=== PATIENT | female | born 1960 | race Caucasian/White ===

== ENCOUNTER → 2017-02-10 | Outpatient (CLI) | payer BC ==
--- NOTE | 2017-02-10 11:39 | MM ---
Reason for exam: additional evaluation requested from prior study. Last mammogram was performed 1 year ago. History: Patient is postmenopausal, has history of breast cancer at age 46, and previous chest radiation therapy. Family history of breast cancer in 2 maternal cousins at age 50. Lumpectomy of the left breast, February 03, 2007. Malignant excisional biopsy of the left breast, January 20, 2007. Benign excisional biopsy of the left breast, 1989. Radiation therapy. Took hormonal contraceptives for 12 years beginning at age 24. Took estrogen for 3 months beginning at age 30. Took progesterone for 2 months. Took antineoplastic for 5 years beginning at age 46. Physical Findings: Nurse did not find any significant physical abnormalities on exam. MG Diagnostic Mammo w CAD [facility] Bilateral CC and MLO view(s) were taken. Prior study comparison: February 25, 2016, bilateral MG 3d diag mammo w/cad [facility]. February 13, 2015, bilateral MG 3d diag mammo w/cad [facility]. There are scattered fibroglandular densities. Finding #1: Architectural distortion in the left breast consistent with lumpectomy changes central aspect. Finding #2: There are typically benign round, linear calcifications in both breasts. There is no discrete abnormality. These results were verbally communicated with the patient and result sheet given to the patient on 02/10/17. ASSESSMENT: Benign, BI-RAD 2 RECOMMENDATION: Follow-up diagnostic mammogram of both breasts in 1 year.
== END | disposition home or self-care (01) ==
LOC: RADMAMWWP 10:18
PROVIDERS: ATTEND Internal Medicine Hematology & Oncology
DX: Z08 Encounter for follow-up examination after completed treatment for malignant neoplasm (principal); Z85.3 Personal history of malignant neoplasm of breast

== ENCOUNTER → 2018-02-02 | Outpatient (CLI) | payer BC ==
--- NOTE | 2018-02-02 11:56 | MM ---
Reason for exam: additional evaluation requested from abnormal screening. Last mammogram was performed 1 year ago. History: Patient is postmenopausal, has history of breast cancer at age 46, and previous chest radiation therapy. Family history of breast cancer in 2 maternal cousins at age 50. Lumpectomy of the left breast, February 03, 2007. Malignant excisional biopsy of the left breast, January 20, 2007. Benign excisional biopsy of the left breast, 1989. Radiation therapy. Took hormonal contraceptives for 12 years beginning at age 24. Took estrogen for 3 months beginning at age 30. Took progesterone for 2 months. Took antineoplastic for 5 years beginning at age 46. Physical Findings: Nurse did not find any significant physical abnormalities on exam. MG 3D Diag Mammo W/Cad [facility] Bilateral CC and MLO view(s) were taken. Prior study comparison: February 10, 2017, bilateral MG diagnostic mammo w CAD [facility]. February 25, 2016, bilateral MG 3d diag mammo w/cad [facility]. There are scattered fibroglandular densities. No significant new findings when compared with previous films. These results were verbally communicated with the patient and result sheet given to the patient on 02/02/18. ASSESSMENT: Benign, BI-RAD 2 RECOMMENDATION: Routine screening mammogram of both breasts in 1 year.
== END | disposition home or self-care (01) ==
LOC: RADMAMWWP 10:57
PROVIDERS: ATTEND Internal Medicine Hematology & Oncology
DX: Z08 Encounter for follow-up examination after completed treatment for malignant neoplasm (principal); Z85.3 Personal history of malignant neoplasm of breast
CPT/HCPCS: 77062; 77066

== ENCOUNTER → 2019-02-15 | Outpatient (CLI) | payer BC ==
--- NOTE | 2019-02-15 13:14 | MM ---
Reason for exam: additional evaluation requested from prior study. Last mammogram was performed 1 year ago. History: Patient is postmenopausal, has history of breast cancer at age 46, and previous chest radiation therapy. Family history of breast cancer in 2 maternal cousins at age 50. Lumpectomy of the left breast, February 03, 2007. Malignant excisional biopsy of the left breast, January 20, 2007. Benign excisional biopsy of the left breast, 1989. Radiation therapy. Took hormonal contraceptives for 12 years beginning at age 24. Took estrogen for 3 months beginning at age 30. Took progesterone for 2 months. Took antineoplastic for 5 years beginning at age 46. Physical Findings: Nurse did not find any significant physical abnormalities on exam. MG 3D Diag Mammo W/Cad [facility] Bilateral CC and MLO view(s) were taken. Prior study comparison: February 02, 2018, bilateral MG 3d diag mammo w/cad [facility]. February 10, 2017, bilateral MG diagnostic mammo w CAD [facility]. The breast tissue is heterogeneously dense. This may lower the sensitivity of mammography. Stable benign calcifications. Stable post operative changes in the left breast of lumpectomy. No significant new findings when compared with previous films. These results were verbally communicated with the patient and result sheet given to the patient on 02/15/19. ASSESSMENT: Benign, BI-RAD 2 RECOMMENDATION: Follow-up diagnostic mammogram of both breasts in 1 year.
== END | disposition home or self-care (01) ==
LOC: RADMAMWWP 12:24
PROVIDERS: ATTEND Internal Medicine Hematology & Oncology
DX: Z08 Encounter for follow-up examination after completed treatment for malignant neoplasm (principal); Z85.3 Personal history of malignant neoplasm of breast
CPT/HCPCS: 77062; 77066

== ENCOUNTER → 2020-02-26 | Day surgery (SDC) | payer BC ==
[2020-02-21 14:54] VITALS: BMI 24.3
[~2020-02-26] MED LIST: LACTATED RINGERS 1,000 ML IV SCH; LIDOCAINE 1% (10MG/ML) FOR IV START INTRADERMA PRN; LIDOCAINE 1% INJ 10MG/ML (20 ML MDV) ONE; PROPOFOL 10 MG/ML 20 ML VIAL IV ONE
[2020-02-26 08:55] VITALS: RESP 16; TEMP 97.2
--- NOTE | 2020-02-26 09:23 | P.GSHP ---
History of Present Illness H&P Date: 02/26/20 Chief Complaint: Colon cancer screening 59-year-old female known to our service. Patient with personal history of left breast cancer. Last time he had a colonoscopy 2013 was normal. Family history of rectal cancer and her father. No bowel complaints. Past Medical History Past Medical History: Cancer, Hypertension Additional Past Medical History / Comment(s): lamisil fungal infection toe nail. lt breast cancer 2006. varicose veins History of Any Multi-Drug Resistant Organisms: None Reported Past Surgical History: Breast Surgery, Hysterectomy Additional Past Surgical History / Comment(s): lt breast lumpectomy with lymph nodes, sx for teratoma, vein stripping lt leg, spur removed from toe, wisdom teeth, lt breast fibroids removed Past Anesthesia/Blood Transfusion Reactions: Postoperative Nausea & Vomiting (PONV) Smoking Status: Former smoker Medications and Allergies Home Medications Medication Instructions Recorded Confirmed Type ALPRAZolam [Xanax] 0.5 mg PO HS PRN 02/21/20 02/21/20 History Calcium Carbonate [Calcium] 600 mg PO DAILY 02/21/20 02/21/20 History Lisinopril-Hctz 10-12.5 mg 1 tab PO DAILY 02/21/20 02/21/20 History [Zestoretic 10-12.5] Melatonin 10 mg PO HS 02/21/20 02/21/20 History Multivitamins, Thera [Multivitamin 1 tab PO DAILY 02/21/20 02/21/20 History (formulary)] Terbinafine [LamISIL] 250 mg PO DAILY 02/21/20 02/21/20 History Allergies Allergy/AdvReac Type Severity Reaction Status Date / Time Penicillins Allergy Unknown Verified 02/26/20 08:47 Childhood Sulfa (Sulfonamide Allergy Rash/Hives Verified 02/26/20 08:47 Antibiotics) Surgical - Exam Vital Signs Temp Pulse Resp BP Pulse Ox 97.2 F L 87 16 134/76 98 02/26/20 08:52 02/26/20 08:52 02/26/20 08:52 02/26/20 08:52 02/26/20 08:52 Physical exam: General: Well-developed, well-nourished HEENT: Normocephalic, sclerae nonicteric Abdomen: Nontender, nondistended Extremities: No edema Neuro: Alert and oriented Assessment and Plan (1) Colon cancer screening Narrative/Plan: Will proceed with colonoscopy Current Visit: Yes Status: Acute Code(s): Z12.11 - ENCOUNTER FOR SCREENING FOR MALIGNANT NEOPLASM OF COLON SNOMED Code(s): 075292076
--- NOTE | 2020-02-26 09:37 | P.PCN ---
Date of Procedure: 02/26/20 Procedure(s) Performed: PREOPERATIVE DIAGNOSIS: Colon cancer screening POSTOPERATIVE DIAGNOSIS: Small descending colon polyp PROCEDURE: Colonoscopy with biopsy ANESTHESIA: MAC SURGEON: Willaims Tracy M.D. SPECIMENS: Polyp ENDOSCOPIC PROCEDURE: The patient was placed on the endoscopy table in the left decubitus position. The Olympus colonoscope was inserted into the anus and passed under direct visualization to the base of the cecum. The appendiceal orifice was visualized. From that point the scope was slowly withdrawn inspecting all surfaces carefully. There were no neoplastic inflammatory or polypoid lesions throughout the cecum, ascending, and transverse colon. In the descending colon a small polyp was seen and removed using the cold biopsy forceps. The remainder of the descending sigmoid and rectum appeared normal. There was no visible diverticulosis. Digital rectal examination was normal. The patient was taken to the recovery room in stable condition per anesthesia guidelines. RECOMMENDATIONS: Await biopsy results. Increase diet. Follow-up colonoscopy 5 years.
[2020-02-26 10:02] VITALS: BP 122/78; PULSE 68
== END ==
LOC: ORWHC2ENDO 08:29
PROVIDERS: ATTEND Surgery
DX: Z12.11 Encounter for screening for malignant neoplasm of colon (principal); D12.4 Benign neoplasm of descending colon; I10 Essential (primary) hypertension; Z79.899 Other long term (current) drug therapy; Z88.0 Allergy status to penicillin; Z88.2 Allergy status to sulfonamides; Z85.3 Personal history of malignant neoplasm of breast; Z90.710 Acquired absence of both cervix and uterus; Z98.818 Other dental procedure status; Z87.891 Personal history of nicotine dependence; Z98.890 Other specified postprocedural states; Z80.0 Family history of malignant neoplasm of digestive organs
CPT/HCPCS: 88305; 45380; J2001; J2704

== ENCOUNTER → 2020-03-04 | Outpatient (CLI) | payer BC ==
--- NOTE | 2020-03-04 11:32 | MM ---
Reason for exam: additional evaluation requested from prior study. Last mammogram was performed 1 year and 1 month ago. History: Patient is postmenopausal, has history of breast cancer at age 46, and previous chest radiation therapy. Family history of breast cancer in 2 maternal cousins at age 50. Lumpectomy of the left breast, February 03, 2007. Malignant excisional biopsy of the left breast, January 20, 2007. Benign excisional biopsy of the left breast, 1989. Radiation therapy. Took hormonal contraceptives for 12 years beginning at age 24. Took estrogen for 3 months beginning at age 30. Took progesterone for 2 months. Took antineoplastic for 5 years beginning at age 46. Physical Findings: Nurse did not find any significant physical abnormalities on exam. MG 3D Diag Mammo W/Cad [facility] Bilateral CC and MLO view(s) were taken. Prior study comparison: February 15, 2019, bilateral MG 3d diag mammo w/cad [facility]. February 02, 2018, bilateral MG 3d diag mammo w/cad [facility]. The breast tissue is heterogeneously dense. This may lower the sensitivity of mammography. Benign appearing bilateral calcifications. No significant new findings when compared with previous films. These results were verbally communicated with the patient and result sheet given to the patient on 03/04/20. ASSESSMENT: Benign, BI-RAD 2 RECOMMENDATION: Routine screening mammogram of both breasts in 1 year.
== END | disposition home or self-care (01) ==
LOC: RADMAMWWP 10:44
PROVIDERS: ATTEND Family Medicine
DX: Z08 Encounter for follow-up examination after completed treatment for malignant neoplasm (principal); Z85.3 Personal history of malignant neoplasm of breast
CPT/HCPCS: 77062; 77066

== ENCOUNTER → 2021-02-19 | Outpatient (CLI) | payer BC ==
--- NOTE | 2021-02-19 09:33 | MM ---
Reason for exam: additional evaluation requested from prior study. Last mammogram was performed 1 year ago. History: Patient is postmenopausal, has history of breast cancer at age 46, and previous chest radiation therapy. Family history of breast cancer in 2 maternal cousins at age 50. Lumpectomy of the left breast, February 03, 2007. Malignant excisional biopsy of the left breast, January 20, 2007. Benign excisional biopsy of the left breast, 1989. Radiation therapy. Took hormonal contraceptives for 12 years beginning at age 24. Took estrogen for 3 months beginning at age 30. Took progesterone for 2 months. Took antineoplastic for 5 years beginning at age 46. Physical Findings: Nurse did not find any significant physical abnormalities on exam. MG 3D Diag Mammo W/Cad [facility] Bilateral CC and MLO view(s) were taken. Prior study comparison: March 04, 2020, bilateral MG 3d diag mammo w/cad [facility]. The breast tissue is heterogeneously dense. This may lower the sensitivity of mammography. Stable benign calcifications. Stable post operative changes left breast. No significant new findings when compared with previous films. These results were verbally communicated with the patient and result sheet given to the patient on 02/19/21. ASSESSMENT: Benign, BI-RAD 2 RECOMMENDATION: Follow-up diagnostic mammogram of both breasts in 1 year.
== END | disposition home or self-care (01) ==
LOC: RADMAMWWP 08:29
PROVIDERS: ATTEND Family Medicine
DX: R92.1 Mammographic calcification found on diagnostic imaging of breast (principal); Z85.3 Personal history of malignant neoplasm of breast
CPT/HCPCS: 77062; 77066

== ENCOUNTER → 2023-02-03 | Outpatient (CLI) | payer BC ==
--- NOTE | 2023-02-04 20:41 | MM ---
Reason for Exam: Screening (asymptomatic). Last screening mammogram was performed 12 month(s) ago. Patient History: Menarche at age 15. First Full-Term at age 31. Left ovary removed at age 40. Right ovary removed at age 40. Hysterectomy at age 40. Postmenopausal. Breast cancer, left, age 46. Previous chest radiation therapy at age 46. Estrogen for 3 months starting at age 30. Progesterone for 2 months until age 38. Hormonal Contraceptives for 12 years from age 24 until age 40. 01/20/2007, Malignant Excisional Biopsy on the left side. 02/03/2007, Lumpectomy on the Left side. 1989, Benign Excisional Biopsy on the left side. Radiation Therapy. Maternal cousin had breast cancer, age 50. Maternal cousin had breast cancer, age 50. Prior Study Comparison: 03/04/2020 Bilateral Diagnostic Mammogram, [facility]. 02/19/2021 Bilateral Diagnostic Mammogram, [facility]. 02/03/2022 Bilateral MG 3D screening mammo w/cad, [facility]. Tissue Density: The breast tissue is heterogeneously dense. This may lower the sensitivity of mammography. Findings: Analyzed By CAD. Postsurgical changes redemonstrated on the left. There is no suspicious group of microcalcifications or new suspicious mass in either breast. Overall Assessment: Benign, BI-RAD 2 Management: Screening Mammogram of both breasts in 1 year. . Patient should continue monthly self-breast exams. A clinical breast exam by your physician is recommended on an annual basis. This exam should not preclude additional follow-up of suspicious palpable abnormalities. Electronically signed and approved by: Maria Del Carmen Espino M.D. Radiologist
== END | disposition home or self-care (01) ==
LOC: RADMAMWWP 09:40
PROVIDERS: ATTEND Internal Medicine Hematology & Oncology
DX: Z12.31 Encounter for screening mammogram for malignant neoplasm of breast (principal); C50.919 Malignant neoplasm of unspecified site of unspecified female breast; N80.9 Endometriosis, unspecified; G43.909 Migraine, unspecified, not intractable, without status migrainosus; I10 Essential (primary) hypertension; Z78.0 Asymptomatic menopausal state; Z80.3 Family history of malignant neoplasm of breast
CPT/HCPCS: 77063; 77067

== ENCOUNTER → 2024-02-06 | Outpatient (CLI) | payer BC ==
--- NOTE | 2024-02-06 13:15 | MM ---
Reason for Exam: Screening (asymptomatic). Last screening mammogram was performed 12 month(s) ago. Patient History: Menarche at age 15. First Full-Term at age 31. Left ovary removed at age 40. Right ovary removed at age 40. Hysterectomy at age 40. Postmenopausal. Breast cancer, left, age 46. Previous chest radiation therapy at age 46. Estrogen for 3 months starting at age 30. Progesterone for 2 months until age 38. Hormonal Contraceptives for 12 years from age 24 until age 40. 01/20/2007, Malignant Excisional Biopsy on the left side. 02/03/2007, Lumpectomy on the Left side. 1989, Benign Excisional Biopsy on the left side. Radiation Therapy. Maternal cousin had breast cancer, age 50. Maternal cousin had breast cancer, age 50. Prior Study Comparison: 02/19/2021 Bilateral Diagnostic Mammogram, [facility]. 02/03/2022 Bilateral MG 3D screening mammo w/cad, [facility]. 02/03/2023 Bilateral MG 3D screening mammo w/cad, [facility]. Tissue Density: The breasts are heterogeneously dense, which may obscure small masses. Findings: Analyzed By CAD. There is no suspicious group of microcalcifications or new suspicious mass in either breast. Postsurgical changes involving the left breast are stable. Benign calcifications. Overall Assessment: Benign, BI-RAD 2 Management: Screening Mammogram of both breasts in 1 year. . Patient should continue monthly self-breast exams. A clinical breast exam by your physician is recommended on an annual basis. This exam should not preclude additional follow-up of suspicious palpable abnormalities. Note on Dorothy scores and lifetime risk: 1. A Dorothy score greater than 3% is considered moderate risk. If this is the case, consider specialist referral to assess eligibility for a risk reducing agent. 2. If overall lifetime risk for the development of breast cancer is 20% or higher, the patient may qualify for future screening with alternating mammogram and breast MRI. [facility], , 02/06/2024 1:11 PM. Electronically signed and approved by: Reagan Hanson M.D. Radiologis
== END | disposition home or self-care (01) ==
LOC: RADMAMWWP 12:31
PROVIDERS: ATTEND Internal Medicine Hematology & Oncology
DX: Z12.31 Encounter for screening mammogram for malignant neoplasm of breast (principal); R92.333 Mammographic heterogeneous density, bilateral breasts; Z78.0 Asymptomatic menopausal state
CPT/HCPCS: 77063; 77067